=== PATIENT | male | born 1990 | race Caucasian/White ===

== ENCOUNTER 2018-05-10 01:16 | Emergency (ER) | payer SELFPAY ==
[~2018-05-10] VITALS: Ht 180.3 cm; Wt 56.8 kg
[2018-05-10 01:21] VITALS: BP 136/88; PULSE 94; RESP 14; Ht 180.3 cm; Wt 56.8 kg
--- NOTE | 2018-05-10 01:27 | ERD ---
ER Documentation Chief Complaint Chief Complaint BIB RA100 s/o opiate OD HPI Is a 28-year-old male brought in by rescue and is status post heroin overdose. He was given Narcan on route with resolution of symptoms. Patient at this point is refusing medical treatment will sign out AGAINST MEDICAL ADVICE. He is alert and oriented x4 with goal oriented speech and good decision-making capacity and ability to negotiate the community ROS All systems reviewed and are negative except as per history of present illness. Physical Exam Vitals Vital Signs Date Temp Pulse Resp B/P (MAP) Pulse Ox O2 O2 Flow FiO2 Time Delivery Rate 05/10/18 94 14 136/88 97 01:21 (104) Physical Exam Const: No acute distress Head: Atraumatic Eyes: Normal Conjunctiva ENT: Normal External Ears, Nose and Mouth. Neck: Full range of motion. No meningismus. Resp: Clear to auscultation bilaterally Cardio: Regular rate and rhythm, no murmurs Abd: Soft, non tender, non distended. Normal bowel sounds Skin: No petechiae or rashes Back: No midline or flank tenderness Ext: No cyanosis, or edema Neur: Awake and alert Psych: Normal Mood and Affect Procedures/MDM Medical decision makin-year-old male here for heroin overdose. He signed out AGAINST MEDICAL ADVICE. He is alert and oriented x4 with goal oriented speech and good decision-making capacity Departure Diagnosis: Primary Impression: Accidental overdose Encounter type: initial encounter Qualified Codes: T50.901A - Poisoning by unspecified drugs, medicaments and biological substances, accidental (unintentional), initial encounter Condition: Stable TIARA RIBERA May 10, 2018 01:27
== END 2018-05-10 01:36 | disposition left against medical advice (07) ==
LOC: E/R 01:16
DX: T40.1X1A Poisoning by heroin, accidental (unintentional), initial encounter (principal)
CPT/HCPCS: 99282